=== PATIENT | male | born 1975 | race Caucasian/White ===

== ENCOUNTER → 2016-12-21 | Outpatient (CLI) | payer OTHER ==
[2016-12-21 16:14] LABS: ANION GAP 8 MEQ/L (8-16); BLOOD UREA NITROGEN 14 MG/DL (7-18); CALCIUM LEVEL 8.3 MG/DL (8.5-10.1); CARBON DIOXIDE LEVEL 26 MEQ/L (21-32); CHLORIDE LEVEL 108 MEQ/L (98-107); CREATININE FOR GFR 0.94 MG/DL (0.70-1.30); GLOMERULAR FILTRATION RATE > 60.0 (>60); GLUCOSE, FASTING 118 MG/DL (70-105); POTASSIUM SERUM 4.2 MEQ/L (3.5-5.1); SODIUM LEVEL 142 MEQ/L (136-145)
[2016-12-21 16:25] LABS: MEAN CORPUSCULAR HEMOGLOBIN 28.2 pg (27.0-33.0); MEAN CORPUSCULAR HGB CONC 34.3 g/dl (32.0-36.5); MEAN CORPUSCULAR VOLUME 82.3 fl (80.0-96.0); PLATELET COUNT, AUTOMATED 171 k/mm3 (150-450); RED CELL DISTRIBUTION WIDTH 13.7 % (11.5-14.5)
[2016-12-21 18:06] LABS: EOSINOPHILS 1 % (0-5)
== END ==
LOC: M WUC 13:53
PROVIDERS: ATTEND Nurse Practitioner Family
DX: J11.1 Influenza due to unidentified influenza virus with other respiratory manifestations (principal)

== ENCOUNTER 2016-12-25 13:44 | Emergency (ER) | payer OTHER ==
[2016-12-25] MEDS ORDERED: KETOROLAC 30 MG/ML VIAL (J1885) As Ordered ONE (15:27)
[2016-12-25] MEDS ORDERED: ONDANSETRON 4MG/2ML VIAL (J2405) As Ordered ONE (15:27)
[2016-12-25 15:58] LABS: ALBUMIN 3.9 GM/DL (3.2-5.2); ALBUMIN/GLOBULIN RATIO 1.15 (1.00-1.93); ALKALINE PHOSPHATASE 234 U/L (45-117); ALT/SGPT 150 U/L (12-78); ANION GAP 10 MEQ/L (8-16); AST/SGOT 97 U/L (15-37); BILIRUBIN,DIRECT 0.5 MG/DL (0.0-0.2); BILIRUBIN,TOTAL 1.9 MG/DL (0.2-1.0); BLOOD UREA NITROGEN 10 MG/DL (7-18); CALCIUM LEVEL 8.2 MG/DL (8.5-10.1); CARBON DIOXIDE LEVEL 29 MEQ/L (21-32); CHLORIDE LEVEL 100 MEQ/L (98-107); CREATININE FOR GFR 0.91 MG/DL (0.70-1.30); GLOMERULAR FILTRATION RATE > 60.0 (>60); GLUCOSE, FASTING 98 MG/DL (70-105); POTASSIUM SERUM 3.6 MEQ/L (3.5-5.1); SODIUM LEVEL 139 MEQ/L (136-145); TOTAL PROTEIN 7.3 GM/DL (6.4-8.2)
[2016-12-25 16:03] LABS: MEAN CORPUSCULAR VOLUME 80.7 fl (80.0-96.0); PLATELET COUNT, AUTOMATED 187 k/mm3 (150-450); WHITE BLOOD COUNT 8.1 K/mm3 (4.0-10.0)
--- NOTE | 2016-12-25 16:13 | REP ---
CT ABDOMEN AND PELVIS WITHOUT IV CONTRAST: CT abdomen and pelvis is performed without oral or IV contrast. Sagittal and coronal reconstruction images are performed. Visualized lung bases demonstrate no infiltrate. Liver, spleen, adrenals, pancreas and kidney are unremarkable. There is no renal or ureteral calculus and no evidence of hydroureteronephrosis. There is no abdominal aortic aneurysm with mild scattered atherosclerotic calcification. There is no adenopathy. There is no free air or free fluid. There is no bowel wall thickening. There is mild sigmoid diverticulosis. The appendix is normal. There is no pelvic mass. Urinary bladder is not distended and is not well evaluated. IMPRESSION: No CT evidence of renal or ureteral calculus and no evidence of hydroureteronephrosis. No evidence of appendicitis. Signed by Gómez Rodriguez MD 12/25/2016 05:00 P
[2016-12-25 16:37] LABS: BANDS 2 % (< 11); EOSINOPHILS 1 % (0-5); OVALOCYTES 1+; PLASMA CELL 1 % (0-0); POIKILOCYTOSIS 1+; POLYCHROMASIA 1+; SMUDGE CELLS 1+
--- NOTE | 2016-12-25 17:32 | EDDOCDS ---
Nurse's Notes [facility] Name: Lester Alcantara Age: 41 yrs Sex: Male : 1975 Arrival Date: 12/25/2016 Time: 13:44 Bed I2 / M2 Private MD: Sly Cuellar Diagnosis: Nausea and vomiting;Diarrhea, unspecified;Abdominal and pelvic pain-Left sided Presentation: 12/25 13:48 Presenting complaint: Patient states: left sided abdominal pain for a few days, kpj appetite poor, very little BM today. Adult Sepsis Screening: The patient does not have new or worsening altered mentation. Patient's respiratory rate is less than 22. Systolic blood pressure is greater than 100. Patient has a qSOFA score of 0- Negative Sepsis Screen. Suicide/Homicide risk assessment- the patient denies having any suicidal and/or homicidal ideations and does not present with any other emotional, behavioral or mental health complaints. Status: Patient is not a food service helper or dependent. Transition of care: patient was not received from another setting of care. 13:48 Acuity: LAKESH[place] Level 3 [facility] 13:48 Method Of Arrival: Walkin/Carried/[facility] Triage Assessment: 13:53 General: Appears well nourished, well groomed, Behavior is appropriate for age, kpj pleasant. Pain: Location: left lower quadrant Pain currently is 5 out of 10 on a pain scale. Pt Declines HIV testing. Neurological: Level of Consciousness is awake, alert, Oriented to person, place, time. Respiratory: Airway is patent Respiratory effort is even, unlabored, Respiratory pattern is regular, symmetrical. GI: Reports lower abdominal pain, nausea, Pain is 5 out of 10 on a pain scale. Derm: Skin is pink, warm & dry. Historical: - Allergies: No known drug Allergies; SHELLFISH (Swelling); - Home Meds: 1. Advair Diskus 100-50 mcg/dose Inhl dsdv 1 puff daily (Last dose: 12/25/2016 06:00) 2. Nexium 40 mg Oral cpDR 1 cap every 3 days (Last dose: 12/25/2016 06:00) 3. ProAir HFA 90 mcg/actuation inhalation HFAA 2 puffs every 4 hours as needed (Last dose: Unknown) 4. acetaminophen 650 mg Oral TbER 2 tabs every 8 hours as needed (Last dose: 12/25/2016 06:00) - PMHx: Asthma; Chronic Back pain; GERD; - PSHx: Tendon repain left middle finger; Left thumb; - Social history: Smoking status: Patient states former smoker of tobacco. No barriers to communication noted, The patient speaks fluent Tajik. - Family history: Not pertinent. - : The pt / caregiver states he / she is not on anticoagulants. Home medication list is obtained from the patient. - Exposure Risk Screening:: None identified. Screenin:36 Screening information is obtained from the patient. Fall risk: No risks identified. k Assistance ADL's: requires no assistance with activities of daily living. Abuse/DV Screen: The patient / caregiver reports he/she is: not in a situation that causes fear, pain or injury. Nutritional screening: No deficits noted. Advance Directives: Currently, there is no health care proxy. There is no active DNR order. There is no living will. 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 Advance directive information has not previously been placed in an [facility] medical record. Further advance directive information is declined. home support is adequate. Assessment: 15:36 General: Appears in no apparent distress, casually sitting on chair. Indicates k discomfort to left lower ribs, posterior aspect. reports increased pain with inspiration. chest is CTA. ++CVA tenderness. Respiratory: Airway is patent Respiratory effort is even, unlabored, Respiratory pattern is regular, Breath sounds are clear bilaterally. GI: Abdomen is flat, non- distended Bowel sounds present X 4 quads. Abd is tender to palpation in posterior aspect of right lateral abdomen. 17:30 General: reports pain as unchanged. continues to present without resp distress. [facility] Vital Signs: 13:46 BP 157 / 94; Pulse 97; Resp 20; Temp 100.0(O); Pulse Ox 98% on R/A; Weight 86.18 kg ar3 (R); Height 5 ft. 5 in. (165.10 cm) (R); Pain 6/10; 16:29 BP 164 / 91; Pulse 89; Resp 18; Temp 100.0; Pulse Ox 98% ; Pain 4/10; jam1 17:28 BP 127 / 72; Pulse 82; Resp 16; Temp 97.3; k 13:46 Body Mass Index 31.62 (86.18 kg, 165.10 cm) ar3 Vitals: 13:46 Log In Time: December 25, 2016 at 13:42. ar3 ED Course: 13:45 Patient visited by Paz Mac PCA. ar3 13:45 Sly Cuellar PA is Private Physician. ar3 13:45 Patient moved to Waiting ar3 13:47 Patient visited by Paz Mac PCA. ar3 13:47 Patient moved to Pre RCE ar3 13:50 Triage Initiated kpj 14:46 Patient moved to Triage 3 ar3 15:01 [facility] cc10 15:01 Fabien Lind MD is Attending Physician. cc10 15:01 Patient visited by Cole Ibrahim PA-C. cc10 15:01 Patient visited by Cole Ibrahim PA-C. cc10 15:08 Patient moved to I2 / M2 ar3 15:09 Urinalysis Sent. ar3 15:09 Urine Culture Sent. ar3 15:18 [place] [place] Agreement was scanned into [employer] and attached to record. lg 15:28 Basic Metabolic Profile Sent. ld5 15:28 CBC with Diff Sent. ld5 15:28 Lipase Sent. ld5 15:28 Liver Profile Sent. ld5 15:28 Inserted saline lock: 20 gauge in left antecubital area and blood collected. The ld5 patient tolerated the procedure well. Labs drawn. (by ED staff). Sent per order to lab. 15:36 The patient / caregiver is instructed regarding the plan of care and ED course. jmk 15:39 Patient visited by Kvng Grissom RN. jmk 16:24 CT ABD & PELVIS: No Contrast Returned. EDMS 16:53 Patient visited by Darcie Hobbs RN. dls 17:08 Sly Cuellar PA is Referral Physician. cc10 17:28 Discontinued lock intact, bleeding controlled, pressure dressing applied, No jmk redness/swelling at site. 17:30 No procedures done that require assistance. ulisesk Administered Medications: 15:35 Drug: NS 0.9% 1000 ml Route: IV; Rate: bolus; Site: left antecubital; kimberly 15:35 Drug: Ondansetron 4 mg Route: IVP; Site: left antecubital; kimberly 15:35 Drug: ketorolac 30 mg [ketorolac 30 mg/mL (1 mL) injection solution (1 mL)] Route: IVP; [facility] Site: left antecubital; Order Results: Lab Order: Basic Metabolic Profile; SPEC12/25/16 15:26 Test: GLUCOSE, FASTING; Value: 98; Range: 70-105; Units: MG/DL; Status: F Test: BLOOD UREA NITROGEN; Value: 10; Range: 7-18; Units: MG/DL; Status: F Test: CREATININE FOR GFR; Value: 0.91; Range: 0.70-1.30; Units: MG/DL; Status: F Test: GLOMERULAR FILTRATION RATE; Value: > 60.0; Range: >60; Status: F Test: SODIUM LEVEL; Value: 139; Range: 136-145; Units: MEQ/L; Status: F Test: POTASSIUM SERUM; Value: 3.6; Range: 3.5-5.1; Units: MEQ/L; Status: F Test: CHLORIDE LEVEL; Value: 100; Range: 98-107; Units: MEQ/L; Status: F Test: CARBON DIOXIDE LEVEL; Value: 29; Range: 21-32; Units: MEQ/L; Status: F Test: ANION GAP; Value: 10; Range: 8-16; Units: MEQ/L; Status: F Test: CALCIUM LEVEL; Value: 8.2; Range: 8.5-10.1; Abnormal: Below low normal; Units: MG/DL; Status: F Test Note: ; Units are mL/min/1.73 m2 Chronic Kidney Disease Staging per NKF: Stage I & II GFR >=60 Normal to Mildly Decreased Stage III GFR 30-59 Moderately Decreased Stage IV GFR 15-29 Severely Decreased Stage V GFR <15 Very Little GFR Left ESRD GFR <15 on GARMENT EXAMINER Lab Order: CBC with Diff; SPEC'12/25/16 15:26 Test: WHITE BLOOD COUNT; Value: 8.1; Range: 4.0-10.0; Units: K/mm3; Status: F Test: RED BLOOD COUNT; Value: 4.55; Range: 4.30-6.10; Units: M/mm3; Status: F Test: HEMOGLOBIN; Value: 13.2; Range: 14.0-18.0; Abnormal: Below low normal; Units: g/dl; Status: F Test: HEMATOCRIT; Value: 36.7; Range: 42.0-52.0; Abnormal: Below low normal; Units: %; Status: F Test: MEAN CORPUSCULAR VOLUME; Value: 80.7; Range: 80.0-96.0; Units: fl; Status: F Test: MEAN CORPUSCULAR HEMOGLOBIN; Value: 29.0; Range: 27.0-33.0; Units: pg; Status: F Test: MEAN CORPUSCULAR HGB CONC; Value: 36.0; Range: 32.0-36.5; Units: g/dl; Status: F Test: RED CELL DISTRIBUTION WIDTH; Value: 14.0; Range: 11.5-14.5; Units: %; Status: F Test: PLATELET COUNT, AUTOMATED; Value: 187; Range: 150-450; Units: k/mm3; Status: F Test: NEUTROPHILS; Value: 26; Range: 35-75; Abnormal: Below low normal; Units: %; Status: F Test: BANDS; Value: 2; Range: < 11; Units: %; Status: F Test: LYMPHOCYTES; Value: 28; Range: 16-52; Units: %; Status: F Test: MONOCYTES; Value: 2; Range: 0-8; Units: %; Status: F Test: EOSINOPHILS; Value: 1; Range: 0-5; Units: %; Status: F Test: ATYPICAL LYMPH; Value: 40; Range: 0-5; Abnormal: Above high normal; Units: %; Status: F Test: PLASMA CELL; Value: 1; Range: 0-0; Abnormal: Above high normal; Units: %; Status: F Test: POLYCHROMASIA; Value: 1+; Status: F Test: POIKILOCYTOSIS; Value: 1+; Status: F Test: OVALOCYTES; Value: 1+; Status: F Test: SMUDGE CELLS; Value: 1+; Status: F Lab Order: Lipase; SPEC'M 12/25/16 15:26 Test: LIPASE; Value: 109; Range: 73-393; Units: U/L; Status: F Lab Order: Liver Profile; SPEC'M 12/25/16 15:26 Test: AST/SGOT; Value: 97; Range: 15-37; Abnormal: Above high normal; Units: U/L; Status: F Test: ALT/SGPT; Value: 150; Range: 12-78; Abnormal: Above high normal; Units: U/L; Status: F Test: ALKALINE PHOSPHATASE; Value: 234; Range: 45-117; Abnormal: Above high normal; Units: U/L; Status: F Test: BILIRUBIN,TOTAL; Value: 1.9; Range: 0.2-1.0; Abnormal: Above high normal; Units: MG/DL; Status: F Test: BILIRUBIN,DIRECT; Value: 0.5; Range: 0.0-0.2; Abnormal: Above high normal; Units: MG/DL; Status: F Test: TOTAL PROTEIN; Value: 7.3; Range: 6.4-8.2; Units: GM/DL; Status: F Test: ALBUMIN; Value: 3.9; Range: 3.2-5.2; Units: GM/DL; Status: F Test: ALBUMIN/GLOBULIN RATIO; Value: 1.15; Range: 1.00-1.93; Status: F Lab Order: Urinalysis; SPEC'M 12/25/16 15:08 Test: APPEARANCE, URINE; Value: HAZY; Range: CLEAR; Status: F Test: COLOR, URINE; Value: NORMAN; Range: YELLOW; Status: F Test: PH,URINE; Value: 6.0; Range: 5.0-9.0; Units: UNITS; Status: F Test: SPECIFIC GRAVITY URINE AUTO; Value: 1.029; Range: 1.002-1.035; Status: F Test: PROTEIN, URINE AUTO; Value: 1+; Range: NEGATIVE; Abnormal: Above high normal; Units: mg/dL; Status: F Test: GLUCOSE, URINE (UA) AUTO; Value: NEGATIVE; Range: NEGATIVE; Units: mg/dL; Status: F Test: KETONE, URINE AUTO; Value: TRACE; Range: NEGATIVE; Abnormal: Above high normal; Units: mg/dL; Status: F Test: UROBILINOGEN, URINE AUTO; Value: 4.0; Range: 0.0-2.0; Abnormal: Above high normal; Units: mg/dL; Status: F Test: BILIRUBIN, URINE AUTO; Value: NEGATIVE; Range: NEGATIVE; Status: F Test: NITRITE, URINE AUTO; Value: NEGATIVE; Range: NEGATIVE; Status: F Test: LEUKOCYTE ESTERASE, URINE AUTO; Value: NEGATIVE; Range: NEGATIVE; Status: F Test: BLOOD, URINE BLOOD; Value: NEGATIVE; Range: NEGATIVE; Status: F Test: WBC, URINE AUTO; Value: 12; Range: 0-3; Abnormal: Above high normal; Units: /HPF; Status: F Test: RBC, URINE AUTO; Value: 4; Range: 0-3; Abnormal: Above high normal; Units: /HPF; Status: F Test: BACTERIA, URINE AUTO; Value: 1+; Range: NEGATIVE; Abnormal: Above high normal; Status: F Test: SQUAMOUS EPITHELIAL CELL UR AU; Value: 0; Range: 0-6; Units: /HPF; Status: F Test: MUCUS, URINE; Value: LARGE; Range: NEGATIVE; Status: F Test: HYALINE CAST, URINE AUTO; Value: 0; Range: 0-1; Units: /LPF; Status: F Lab Order: PLATELET ESTIMATE; SPEC'M 12/25/16 15:26 Test: PLATELET ESTIMATE; Value: NORMAL; Range: NORMAL; Status: F Radiology Order: CT ABD & PELVIS: No Contrast Test: CT ABD & PELVIS: No Contrast REASON FOR EXAMINATION: Renal colic; CT ABDOMEN AND PELVIS WITHOUT IV CONTRAST:; ; CT abdomen and pelvis is performed without oral or IV contrast. Sagittal and; coronal reconstruction images are performed.; ; Visualized lung bases demonstrate no infiltrate. Liver, spleen, adrenals,; pancreas and kidney are unremarkable. There is no renal or ureteral calculus and; no evidence of hydroureteronephrosis. There is no abdominal aortic aneurysm with; mild scattered atherosclerotic calcification. There is no adenopathy. There is no; free air or free fluid. There is no bowel wall thickening. There is mild sigmoid; diverticulosis. The appendix is normal. There is no pelvic mass. Urinary bladder; is not distended and is not well evaluated.; ; IMPRESSION:; ; No CT evidence of renal or ureteral calculus and no evidence of; hydroureteronephrosis. No evidence of appendicitis.; ; ; ; Unreviewed; Outcome: 17:08 Discharge ordered by Provider. cc10 17:28 Discharge Assessment: Patient awake, alert and oriented x 3. No cognitive and/or jmk functional deficits noted. Patient verbalized understanding of disposition instructions. patient administered narcotics - no. The following High Risk Discharge criteria are identified: None. Discharged to home ambulatory. Condition: good. Discharge instructions given to patient, Instructed on discharge instructions, follow up and referral plans. medication usage, Demonstrated understanding of instructions, medications, Pt was receptive of discharge instructions/ teaching. Prescriptions given X 2. CT Study completed. Property :Personal belongings accompany Pt. 17:31 Patient left the ED. kimberly Signatures: Dispatcher [employer] EDMS Lianna Chavira RN RN Kvng MoiseRN RN Darcie Gannon RN RN Shayy Horne, TIRE REPAIR MECHANIC TIRE REPAIR MECHANIC jam1 Nima Cao, Reg Reg lg Paz Mac, TIRE REPAIR MECHANIC TIRE REPAIR MECHANIC ar3 Breonna Salgado RN RN ld5 Cole Ibrahim, PA-C PA-C cc10 MTDD
--- NOTE | 2016-12-25 17:32 | EDDOCDS ---
Physician Documentation [facility] Name: Lester Alcantara Age: 41 yrs Sex: Male : 1975 Arrival Date: 12/25/2016 Time: 13:44 Bed I2 / M2 Private MD: Sly Cuellar Disposition: 12/25/16 17:08 Discharged to Home/Self Care. Impression: Nausea and vomiting, Diarrhea, unspecified, Abdominal and pelvic pain - Left sided. - Condition is Stable. - Discharge Instructions: Food Choices to Help Relieve Diarrhea, Adult, Nausea and Vomiting. - Prescriptions for Ultram 50 mg Oral Tablet - take 1 tablet by ORAL route every 6 hours As needed MDD: 4 tabs; 16 tablet. ZOFRAN ODT 4 mg - dissolve 1 tablet by ORAL route 4 times per day As needed do not chew, do not swallow whole; 10 tablet. - Medication Reconciliation form. - Follow up: Emergency Department; When: As needed; Reason: Worsening of conditions. Follow up: Sly Cuellar PA; When: Call to arrange an appointment; Reason: Wound/Symptom Recheck, Recheck today's complaints, Worsening of conditions, Continuance of care. - Problem is an ongoing problem. - Symptoms have improved. Historical: - Allergies: No known drug Allergies; SHELLFISH (Swelling); - Home Meds: 1. Advair Diskus 100-50 mcg/dose Inhl dsdv 1 puff daily (Last dose: 12/25/2016 06:00) 2. Nexium 40 mg Oral cpDR 1 cap every 3 days (Last dose: 12/25/2016 06:00) 3. ProAir HFA 90 mcg/actuation inhalation HFAA 2 puffs every 4 hours as needed (Last dose: Unknown) 4. acetaminophen 650 mg Oral TbER 2 tabs every 8 hours as needed (Last dose: 12/25/2016 06:00) - PMHx: Asthma; Chronic Back pain; GERD; - PSHx: Tendon repain left middle finger; Left thumb; - Social history: Smoking status: Patient states former smoker of tobacco. No barriers to communication noted, The patient speaks fluent Georgian. - Family history: Not pertinent. - : The pt / caregiver states he / she is not on anticoagulants. Home medication list is obtained from the patient. - Exposure Risk Screening:: None identified. Vital Signs: 12/25 13:46 BP 157 / 94; Pulse 97; Resp 20; Temp 100.0(O); Pulse Ox 98% on R/A; Weight 86.18 kg / ar3 189.99 lbs (R); Height 5 ft. 5 in. (165.10 cm) (R); Pain 6/10; 16:29 BP 164 / 91; Pulse 89; Resp 18; Temp 100.0; Pulse Ox 98% ; Pain 4/10; jam1 17:28 BP 127 / 72; Pulse 82; Resp 16; Temp 97.3; jmk 13:46 Body Mass Index 31.62 (86.18 kg, 165.10 cm) ar3 MDM: 15:04 Financial registration complete. lg 15:06 NS 0.9% 1000 ml IV at bolus once ordered. cc10 15:06 Ondansetron 4 mg IVP once ordered. cc10 15:06 ketorolac 30 mg IVP once ordered. cc10 15:06 IV Saline Lock ordered. cc10 15:06 Undress patient appropriately for examination ordered. cc10 15:07 Basic Metabolic Profile Ordered. EDMS 15:07 CBC with Diff Ordered. EDMS 15:07 Lipase Ordered. EDMS 15:07 Liver Profile Ordered. EDMS 15:07 Urinalysis Ordered. EDMS 15:07 Urine Culture Ordered. EDMS 15:07 CT ABD & PELVIS: No Contrast Ordered. EDMS 15:08 NOTHING BY MOUTH+DIET ordered. EDMS 15:18 [facility] Payment Agreement was scanned into [employer] and attached to record. lg 16:04 DIFFERENTIAL NO CHARGE Ordered. EDMS 16:04 PLATELET ESTIMATE Ordered. EDMS 16:16 Basic Metabolic Profile Reviewed. cc10 16:16 CBC with Diff Reviewed. cc10 16:16 Liver Profile Reviewed. cc10 16:16 Urinalysis Reviewed. cc10 16:16 Lipase Reviewed. cc10 16:19 Vital Signs ordered. cc10 17:11 Hepatitis Profile Ordered. EDMS Administered Medications: 15:35 Drug: NS 0.9% 1000 ml Route: IV; Rate: bolus; Site: left antecubital; jmk 15:35 Drug: Ondansetron 4 mg Route: IVP; Site: left antecubital; jmk 15:35 Drug: ketorolac 30 mg [ketorolac 30 mg/mL (1 mL) injection solution (1 mL)] Route: IVP; ulisesk Site: left antecubital; Signatures: Dispatcher [employer] Lianna Bo RN RN Kvng MoiseRN RN Nima Cartagena, Hammad Reg Cole Infante, BARAK CANCINO cc10 The chart was reviewed and I authenticate all verbal orders and agree with the evaluation and treatment provided.Attachments: 15:18 [facility] Payment Agreement lg MTDD
--- NOTE | 2016-12-27 18:32 | EDDOCDS ---
Nurse's Notes [facility] Name: Lester Alcantara Age: 41 yrs Sex: Male : 1975 Arrival Date: 12/25/2016 Time: 13:44 Bed I2 / M2 Private MD: Sly Cuellar Diagnosis: Nausea and vomiting;Diarrhea, unspecified;Abdominal and pelvic pain-Left sided Presentation: 12/25 13:48 Presenting complaint: Patient states: left sided abdominal pain for a few days, kpj appetite poor, very little BM today. Adult Sepsis Screening: The patient does not have new or worsening altered mentation. Patient's respiratory rate is less than 22. Systolic blood pressure is greater than 100. Patient has a qSOFA score of 0- Negative Sepsis Screen. Suicide/Homicide risk assessment- the patient denies having any suicidal and/or homicidal ideations and does not present with any other emotional, behavioral or mental health complaints. 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 Transition of care: patient was not received from another setting of care. 13:48 Acuity: LAKESH[place] Level 3 [facility] 13:48 Method Of Arrival: Walkin/Carried/Asstd [facility] Triage Assessment: 13:53 General: Appears well nourished, well groomed, Behavior is appropriate for age, kpj pleasant. Pain: Location: left lower quadrant Pain currently is 5 out of 10 on a pain scale. Pt Declines HIV testing. Neurological: Level of Consciousness is awake, alert, Oriented to person, place, time. Respiratory: Airway is patent Respiratory effort is even, unlabored, Respiratory pattern is regular, symmetrical. GI: Reports lower abdominal pain, nausea, Pain is 5 out of 10 on a pain scale. Derm: Skin is pink, warm & dry. Historical: - Allergies: No known drug Allergies; SHELLFISH (Swelling); - Home Meds: 1. Advair Diskus 100-50 mcg/dose Inhl dsdv 1 puff daily (Last dose: 12/25/2016 06:00) 2. Nexium 40 mg Oral cpDR 1 cap every 3 days (Last dose: 12/25/2016 06:00) 3. ProAir HFA 90 mcg/actuation inhalation HFAA 2 puffs every 4 hours as needed (Last dose: Unknown) 4. acetaminophen 650 mg Oral TbER 2 tabs every 8 hours as needed (Last dose: 12/25/2016 06:00) - PMHx: Asthma; Chronic Back pain; GERD; - PSHx: Tendon repain left middle finger; Left thumb; - Social history: Smoking status: Patient states former smoker of tobacco. No barriers to communication noted, The patient speaks fluent Luxembourgish. - Family history: Not pertinent. - : The pt / caregiver states he / she is not on anticoagulants. Home medication list is obtained from the patient. - Exposure Risk Screening:: None identified. Screenin:36 Screening information is obtained from the patient. Fall risk: No risks identified. k Assistance ADL's: requires no assistance with activities of daily living. Abuse/DV Screen: The patient / caregiver reports he/she is: not in a situation that causes fear, pain or injury. Nutritional screening: No deficits noted. Advance Directives: Currently, there is no health care proxy. There is no active DNR order. There is no living will. There is no Power of Milling/Polishing Operator. Advance directive information has not previously been placed in an [facility] medical record. Further advance directive information is declined. home support is adequate. Assessment: 15:36 General: Appears in no apparent distress, casually sitting on chair. Indicates k discomfort to left lower ribs, posterior aspect. reports increased pain with inspiration. chest is CTA. ++CVA tenderness. Respiratory: Airway is patent Respiratory effort is even, unlabored, Respiratory pattern is regular, Breath sounds are clear bilaterally. GI: Abdomen is flat, non- distended Bowel sounds present X 4 quads. Abd is tender to palpation in posterior aspect of right lateral abdomen. 17:30 General: reports pain as unchanged. continues to present without resp distress. [facility] Vital Signs: 13:46 BP 157 / 94; Pulse 97; Resp 20; Temp 100.0(O); Pulse Ox 98% on R/A; Weight 86.18 kg ar3 (R); Height 5 ft. 5 in. (165.10 cm) (R); Pain 6/10; 16:29 BP 164 / 91; Pulse 89; Resp 18; Temp 100.0; Pulse Ox 98% ; Pain 4/10; jam1 17:28 BP 127 / 72; Pulse 82; Resp 16; Temp 97.3; k 13:46 Body Mass Index 31.62 (86.18 kg, 165.10 cm) ar3 Vitals: 13:46 Log In Time: December 25, 2016 at 13:42. ar3 ED Course: 13:45 Patient visited by Paz Mac PCA. ar3 13:45 Sly Cuellar PA is Private Physician. ar3 13:45 Patient moved to Waiting ar3 13:47 Patient visited by Paz Mac PCA. ar3 13:47 Patient moved to Pre RCE ar3 13:50 Triage Initiated kpj 14:46 Patient moved to Triage 3 ar3 15:01 [facility] cc10 15:01 Fabien Lind MD is Attending Physician. cc10 15:01 Patient visited by Cole Ibrahim PA-C. cc10 15:01 Patient visited by Cole Ibrahim PA-C. cc10 15:08 Patient moved to I2 / M2 ar3 15:09 Urinalysis Sent. ar3 15:09 Urine Culture Sent. ar3 15:18 [facility] Payment Agreement was scanned into [employer] and attached to record. lg 15:28 Basic Metabolic Profile Sent. ld5 15:28 CBC with Diff Sent. ld5 15:28 Lipase Sent. ld5 15:28 Liver Profile Sent. ld5 15:28 Inserted saline lock: 20 gauge in left antecubital area and blood collected. The ld5 patient tolerated the procedure well. Labs drawn. (by ED staff). Sent per order to lab. 15:36 The patient / caregiver is instructed regarding the plan of care and ED course. jmk 15:39 Patient visited by Kvng Grissom RN. jmk 16:24 CT ABD & PELVIS: No Contrast Returned. EDMS 16:53 Patient visited by Darcie Hobbs RN. dls 17:08 Sly Cuellar PA is Referral Physician. cc10 17:28 Discontinued lock intact, bleeding controlled, pressure dressing applied, No jmk redness/swelling at site. 17:30 No procedures done that require assistance. ulisesk Administered Medications: 15:35 Drug: NS 0.9% 1000 ml Route: IV; Rate: bolus; Site: left antecubital; kimberly 15:35 Drug: Ondansetron 4 mg Route: IVP; Site: left antecubital; kimberly 15:35 Drug: ketorolac 30 mg [ketorolac 30 mg/mL (1 mL) injection solution (1 mL)] Route: IVP; [facility] Site: left antecubital; Order Results: Lab Order: Basic Metabolic Profile; SPEC12/25/16 15:26 Test: GLUCOSE, FASTING; Value: 98; Range: 70-105; Units: MG/DL; Status: F Test: BLOOD UREA NITROGEN; Value: 10; Range: 7-18; Units: MG/DL; Status: F Test: CREATININE FOR GFR; Value: 0.91; Range: 0.70-1.30; Units: MG/DL; Status: F Test: GLOMERULAR FILTRATION RATE; Value: > 60.0; Range: >60; Status: F Test: SODIUM LEVEL; Value: 139; Range: 136-145; Units: MEQ/L; Status: F Test: POTASSIUM SERUM; Value: 3.6; Range: 3.5-5.1; Units: MEQ/L; Status: F Test: CHLORIDE LEVEL; Value: 100; Range: 98-107; Units: MEQ/L; Status: F Test: CARBON DIOXIDE LEVEL; Value: 29; Range: 21-32; Units: MEQ/L; Status: F Test: ANION GAP; Value: 10; Range: 8-16; Units: MEQ/L; Status: F Test: CALCIUM LEVEL; Value: 8.2; Range: 8.5-10.1; Abnormal: Below low normal; Units: MG/DL; Status: F Test Note: ; Units are mL/min/1.73 m2 Chronic Kidney Disease Staging per NKF: Stage I & II GFR >=60 Normal to Mildly Decreased Stage III GFR 30-59 Moderately Decreased Stage IV GFR 15-29 Severely Decreased Stage V GFR <15 Very Little GFR Left ESRD GFR <15 on [facility] Lab Order: CBC with Diff; SPEC'12/25/16 15:26 Test: WHITE BLOOD COUNT; Value: 8.1; Range: 4.0-10.0; Units: K/mm3; Status: F Test: RED BLOOD COUNT; Value: 4.55; Range: 4.30-6.10; Units: M/mm3; Status: F Test: HEMOGLOBIN; Value: 13.2; Range: 14.0-18.0; Abnormal: Below low normal; Units: g/dl; Status: F Test: HEMATOCRIT; Value: 36.7; Range: 42.0-52.0; Abnormal: Below low normal; Units: %; Status: F Test: MEAN CORPUSCULAR VOLUME; Value: 80.7; Range: 80.0-96.0; Units: fl; Status: F Test: MEAN CORPUSCULAR HEMOGLOBIN; Value: 29.0; Range: 27.0-33.0; Units: pg; Status: F Test: MEAN CORPUSCULAR HGB CONC; Value: 36.0; Range: 32.0-36.5; Units: g/dl; Status: F Test: RED CELL DISTRIBUTION WIDTH; Value: 14.0; Range: 11.5-14.5; Units: %; Status: F Test: PLATELET COUNT, AUTOMATED; Value: 187; Range: 150-450; Units: k/mm3; Status: F Test: NEUTROPHILS; Value: 26; Range: 35-75; Abnormal: Below low normal; Units: %; Status: F Test: BANDS; Value: 2; Range: < 11; Units: %; Status: F Test: LYMPHOCYTES; Value: 28; Range: 16-52; Units: %; Status: F Test: MONOCYTES; Value: 2; Range: 0-8; Units: %; Status: F Test: EOSINOPHILS; Value: 1; Range: 0-5; Units: %; Status: F Test: ATYPICAL LYMPH; Value: 40; Range: 0-5; Abnormal: Above high normal; Units: %; Status: F Test: PLASMA CELL; Value: 1; Range: 0-0; Abnormal: Above high normal; Units: %; Status: F Test: POLYCHROMASIA; Value: 1+; Status: F Test: POIKILOCYTOSIS; Value: 1+; Status: F Test: OVALOCYTES; Value: 1+; Status: F Test: SMUDGE CELLS; Value: 1+; Status: F Lab Order: Lipase; SPEC'M 12/25/16 15:26 Test: LIPASE; Value: 109; Range: 73-393; Units: U/L; Status: F Lab Order: Liver Profile; SPEC'M 12/25/16 15:26 Test: AST/SGOT; Value: 97; Range: 15-37; Abnormal: Above high normal; Units: U/L; Status: F Test: ALT/SGPT; Value: 150; Range: 12-78; Abnormal: Above high normal; Units: U/L; Status: F Test: ALKALINE PHOSPHATASE; Value: 234; Range: 45-117; Abnormal: Above high normal; Units: U/L; Status: F Test: BILIRUBIN,TOTAL; Value: 1.9; Range: 0.2-1.0; Abnormal: Above high normal; Units: MG/DL; Status: F Test: BILIRUBIN,DIRECT; Value: 0.5; Range: 0.0-0.2; Abnormal: Above high normal; Units: MG/DL; Status: F Test: TOTAL PROTEIN; Value: 7.3; Range: 6.4-8.2; Units: GM/DL; Status: F Test: ALBUMIN; Value: 3.9; Range: 3.2-5.2; Units: GM/DL; Status: F Test: ALBUMIN/GLOBULIN RATIO; Value: 1.15; Range: 1.00-1.93; Status: F Lab Order: Urinalysis; SPEC'M 12/25/16 15:08 Test: APPEARANCE, URINE; Value: HAZY; Range: CLEAR; Status: F Test: COLOR, URINE; Value: NORMAN; Range: YELLOW; Status: F Test: PH,URINE; Value: 6.0; Range: 5.0-9.0; Units: UNITS; Status: F Test: SPECIFIC GRAVITY URINE AUTO; Value: 1.029; Range: 1.002-1.035; Status: F Test: PROTEIN, URINE AUTO; Value: 1+; Range: NEGATIVE; Abnormal: Above high normal; Units: mg/dL; Status: F Test: GLUCOSE, URINE (UA) AUTO; Value: NEGATIVE; Range: NEGATIVE; Units: mg/dL; Status: F Test: KETONE, URINE AUTO; Value: TRACE; Range: NEGATIVE; Abnormal: Above high normal; Units: mg/dL; Status: F Test: UROBILINOGEN, URINE AUTO; Value: 4.0; Range: 0.0-2.0; Abnormal: Above high normal; Units: mg/dL; Status: F Test: BILIRUBIN, URINE AUTO; Value: NEGATIVE; Range: NEGATIVE; Status: F Test: NITRITE, URINE AUTO; Value: NEGATIVE; Range: NEGATIVE; Status: F Test: LEUKOCYTE ESTERASE, URINE AUTO; Value: NEGATIVE; Range: NEGATIVE; Status: F Test: BLOOD, URINE BLOOD; Value: NEGATIVE; Range: NEGATIVE; Status: F Test: WBC, URINE AUTO; Value: 12; Range: 0-3; Abnormal: Above high normal; Units: /HPF; Status: F Test: RBC, URINE AUTO; Value: 4; Range: 0-3; Abnormal: Above high normal; Units: /HPF; Status: F Test: BACTERIA, URINE AUTO; Value: 1+; Range: NEGATIVE; Abnormal: Above high normal; Status: F Test: SQUAMOUS EPITHELIAL CELL UR AU; Value: 0; Range: 0-6; Units: /HPF; Status: F Test: MUCUS, URINE; Value: LARGE; Range: NEGATIVE; Status: F Test: HYALINE CAST, URINE AUTO; Value: 0; Range: 0-1; Units: /LPF; Status: F Lab Order: Urine Culture; SPEC'M 12/25/16 15:08 Test: URINE CULTURE; Value: <EXTERNAL COMMENT eCWMed> FULL REPORT IN LAB NOTES (eCW and Medent).; Status: F Test: URINE CULTURE; Value: URINE CULTURE RESULT NO GROWTH; Status: F Lab Order: PLATELET ESTIMATE; SPEC'M 12/25/16 15:26 Test: PLATELET ESTIMATE; Value: NORMAL; Range: NORMAL; Status: F Lab Order: Hepatitis Profile; SPEC'M 12/25/16 15:22 Test: HEPATITIS C VIRUS SHAKIRA INDEX; Value: 0.1; Range: <0.8; Units: INDEX; Status: F Test: HEPATITIS B SURFACE ANTIGEN; Value: NEGATIVE; Range: NEGATIVE; Status: F Test: HEPATITIS B CORE ANTIBODY IGM; Value: NEGATIVE; Range: NEGATIVE; Status: F Test: HEPATITIS A ANTIBODY IGM; Value: NEGATIVE; Range: NEGATIVE; Status: F Test Note: ; Negative Not infected with HCV, unless recent infection is suspected or other evidence exists to indicate HCV infection. Radiology Order: CT ABD & PELVIS: No Contrast Test: CT ABD & PELVIS: No Contrast REASON FOR EXAMINATION: Renal colic; CT ABDOMEN AND PELVIS WITHOUT IV CONTRAST:; ; CT abdomen and pelvis is performed without oral or IV contrast. Sagittal and; coronal reconstruction images are performed.; ; Visualized lung bases demonstrate no infiltrate. Liver, spleen, adrenals,; pancreas and kidney are unremarkable. There is no renal or ureteral calculus and; no evidence of hydroureteronephrosis. There is no abdominal aortic aneurysm with; mild scattered atherosclerotic calcification. There is no adenopathy. There is no; free air or free fluid. There is no bowel wall thickening. There is mild sigmoid; diverticulosis. The appendix is normal. There is no pelvic mass. Urinary bladder; is not distended and is not well evaluated.; ; IMPRESSION:; ; No CT evidence of renal or ureteral calculus and no evidence of; hydroureteronephrosis. No evidence of appendicitis.; ; ; Signed by; Gómez Rodriguez MD 12/25/2016 05:00 P; Outcome: 17:08 Discharge ordered by Provider. cc10 17:28 Discharge Assessment: Patient awake, alert and oriented x 3. No cognitive and/or jmk functional deficits noted. Patient verbalized understanding of disposition instructions. patient administered narcotics - no. The following High Risk Discharge criteria are identified: None. Discharged to home ambulatory. Condition: good. Discharge instructions given to patient, Instructed on discharge instructions, follow up and referral plans. medication usage, Demonstrated understanding of instructions, medications, Pt was receptive of discharge instructions/ teaching. Prescriptions given X 2. CT Study completed. Property :Personal belongings accompany Pt. 17:31 Patient left the ED. kimberly Signatures: Dispatcher [employer] EDMS Lianna Chavira, RN Kvng Kendall,RN RN Darcie Gannon RN RN dls Shayy Champion, TAX SERVICES PROFESSIONAL TAX SERVICES PROFESSIONAL jam1 Nima Cao, Reg Reg lg Paz Mac, TAX SERVICES PROFESSIONAL TAX SERVICES PROFESSIONAL ar3 Breonna Salgado RN RN ld5 Cole Ibrahim, PA-C PA-C cc10 Chart Complete MTDD
--- NOTE | 2016-12-27 18:32 | EDDOCDS ---
Physician Documentation [facility] Name: Lester Alcantara Age: 41 yrs Sex: Male : 1975 Arrival Date: 12/25/2016 Time: 13:44 Bed I2 / M2 Private MD: Sly Cuellar Disposition: 12/25/16 17:08 Discharged to Home/Self Care. Impression: Nausea and vomiting, Diarrhea, unspecified, Abdominal and pelvic pain - Left sided. - Condition is Stable. - Discharge Instructions: Food Choices to Help Relieve Diarrhea, Adult, Nausea and Vomiting. - Prescriptions for Ultram 50 mg Oral Tablet - take 1 tablet by ORAL route every 6 hours As needed MDD: 4 tabs; 16 tablet. ZOFRAN ODT 4 mg - dissolve 1 tablet by ORAL route 4 times per day As needed do not chew, do not swallow whole; 10 tablet. - Medication Reconciliation form. - Follow up: Emergency Department; When: As needed; Reason: Worsening of conditions. Follow up: Sly Cuellar PA; When: Call to arrange an appointment; Reason: Wound/Symptom Recheck, Recheck today's complaints, Worsening of conditions, Continuance of care. - Problem is an ongoing problem. - Symptoms have improved. Historical: - Allergies: No known drug Allergies; SHELLFISH (Swelling); - Home Meds: 1. Advair Diskus 100-50 mcg/dose Inhl dsdv 1 puff daily (Last dose: 12/25/2016 06:00) 2. Nexium 40 mg Oral cpDR 1 cap every 3 days (Last dose: 12/25/2016 06:00) 3. ProAir HFA 90 mcg/actuation inhalation HFAA 2 puffs every 4 hours as needed (Last dose: Unknown) 4. acetaminophen 650 mg Oral TbER 2 tabs every 8 hours as needed (Last dose: 12/25/2016 06:00) - PMHx: Asthma; Chronic Back pain; GERD; - PSHx: Tendon repain left middle finger; Left thumb; - Social history: Smoking status: Patient states former smoker of tobacco. No barriers to communication noted, The patient speaks fluent Mauritanian. - Family history: Not pertinent. - : The pt / caregiver states he / she is not on anticoagulants. Home medication list is obtained from the patient. - Exposure Risk Screening:: None identified. Vital Signs: 12/25 13:46 BP 157 / 94; Pulse 97; Resp 20; Temp 100.0(O); Pulse Ox 98% on R/A; Weight 86.18 kg / ar3 189.99 lbs (R); Height 5 ft. 5 in. (165.10 cm) (R); Pain 6/10; 16:29 BP 164 / 91; Pulse 89; Resp 18; Temp 100.0; Pulse Ox 98% ; Pain 4/10; jam1 17:28 BP 127 / 72; Pulse 82; Resp 16; Temp 97.3; jmk 13:46 Body Mass Index 31.62 (86.18 kg, 165.10 cm) ar3 MDM: 15:04 Financial registration complete. lg 15:06 NS 0.9% 1000 ml IV at bolus once ordered. cc10 15:06 Ondansetron 4 mg IVP once ordered. cc10 15:06 ketorolac 30 mg IVP once ordered. cc10 15:06 IV Saline Lock ordered. cc10 15:06 Undress patient appropriately for examination ordered. cc10 15:07 Basic Metabolic Profile Ordered. EDMS 15:07 CBC with Diff Ordered. EDMS 15:07 Lipase Ordered. EDMS 15:07 Liver Profile Ordered. EDMS 15:07 Urinalysis Ordered. EDMS 15:07 Urine Culture Ordered. EDMS 15:07 CT ABD & PELVIS: No Contrast Ordered. EDMS 15:08 NOTHING BY MOUTH+DIET ordered. EDMS 15:18 [facility] Payment Agreement was scanned into [employer] and attached to record. lg 16:04 DIFFERENTIAL NO CHARGE Ordered. EDMS 16:04 PLATELET ESTIMATE Ordered. EDMS 16:16 Basic Metabolic Profile Reviewed. cc10 16:16 CBC with Diff Reviewed. cc10 16:16 Liver Profile Reviewed. cc10 16:16 Urinalysis Reviewed. cc10 16:16 Lipase Reviewed. cc10 16:19 Vital Signs ordered. cc10 17:11 Hepatitis Profile Ordered. EDMS Administered Medications: 15:35 Drug: NS 0.9% 1000 ml Route: IV; Rate: bolus; Site: left antecubital; jmk 15:35 Drug: Ondansetron 4 mg Route: IVP; Site: left antecubital; jmk 15:35 Drug: ketorolac 30 mg [ketorolac 30 mg/mL (1 mL) injection solution (1 mL)] Route: IVP; ulisesk Site: left antecubital; Signatures: Dispatcher [employer] Lianna Bo RN RN Kvng MoiseRN RN Nima Cartagena, Hammad Reg lg Cole Ibrahim, BARAK CANCINO cc10 The chart was reviewed and I authenticate all verbal orders and agree with the evaluation and treatment provided.Attachments: 15:18 [facility] Payment Agreement lg Chart Complete MTDD
--- NOTE | 2016-12-27 18:32 | EDDOCDS ---
Physician Documentation [facility] Name: Lester Alcantara Age: 41 yrs Sex: Male : 1975 Arrival Date: 12/25/2016 Time: 13:44 Bed I2 / M2 Private MD: Sly Cuellar Disposition: 12/25/16 17:08 Discharged to Home/Self Care. Impression: Nausea and vomiting, Diarrhea, unspecified, Abdominal and pelvic pain - Left sided. - Condition is Stable. - Discharge Instructions: Food Choices to Help Relieve Diarrhea, Adult, Nausea and Vomiting. - Prescriptions for Ultram 50 mg Oral Tablet - take 1 tablet by ORAL route every 6 hours As needed MDD: 4 tabs; 16 tablet. ZOFRAN ODT 4 mg - dissolve 1 tablet by ORAL route 4 times per day As needed do not chew, do not swallow whole; 10 tablet. - Medication Reconciliation form. - Follow up: Emergency Department; When: As needed; Reason: Worsening of conditions. Follow up: Sly Cuellar PA; When: Call to arrange an appointment; Reason: Wound/Symptom Recheck, Recheck today's complaints, Worsening of conditions, Continuance of care. - Problem is an ongoing problem. - Symptoms have improved. Historical: - Allergies: No known drug Allergies; SHELLFISH (Swelling); - Home Meds: 1. Advair Diskus 100-50 mcg/dose Inhl dsdv 1 puff daily (Last dose: 12/25/2016 06:00) 2. Nexium 40 mg Oral cpDR 1 cap every 3 days (Last dose: 12/25/2016 06:00) 3. ProAir HFA 90 mcg/actuation inhalation HFAA 2 puffs every 4 hours as needed (Last dose: Unknown) 4. acetaminophen 650 mg Oral TbER 2 tabs every 8 hours as needed (Last dose: 12/25/2016 06:00) - PMHx: Asthma; Chronic Back pain; GERD; - PSHx: Tendon repain left middle finger; Left thumb; - Social history: Smoking status: Patient states former smoker of tobacco. No barriers to communication noted, The patient speaks fluent Chinese. - Family history: Not pertinent. - : The pt / caregiver states he / she is not on anticoagulants. Home medication list is obtained from the patient. - Exposure Risk Screening:: None identified. Vital Signs: 12/25 13:46 BP 157 / 94; Pulse 97; Resp 20; Temp 100.0(O); Pulse Ox 98% on R/A; Weight 86.18 kg / ar3 189.99 lbs (R); Height 5 ft. 5 in. (165.10 cm) (R); Pain 6/10; 16:29 BP 164 / 91; Pulse 89; Resp 18; Temp 100.0; Pulse Ox 98% ; Pain 4/10; jam1 17:28 BP 127 / 72; Pulse 82; Resp 16; Temp 97.3; jmk 13:46 Body Mass Index 31.62 (86.18 kg, 165.10 cm) ar3 MDM: 15:04 Financial registration complete. lg 15:06 NS 0.9% 1000 ml IV at bolus once ordered. cc10 15:06 Ondansetron 4 mg IVP once ordered. cc10 15:06 ketorolac 30 mg IVP once ordered. cc10 15:06 IV Saline Lock ordered. cc10 15:06 Undress patient appropriately for examination ordered. cc10 15:07 Basic Metabolic Profile Ordered. EDMS 15:07 CBC with Diff Ordered. EDMS 15:07 Lipase Ordered. EDMS 15:07 Liver Profile Ordered. EDMS 15:07 Urinalysis Ordered. EDMS 15:07 Urine Culture Ordered. EDMS 15:07 CT ABD & PELVIS: No Contrast Ordered. EDMS 15:08 NOTHING BY MOUTH+DIET ordered. EDMS 15:18 [facility] Payment Agreement was scanned into [employer] and attached to record. lg 16:04 DIFFERENTIAL NO CHARGE Ordered. EDMS 16:04 PLATELET ESTIMATE Ordered. EDMS 16:16 Basic Metabolic Profile Reviewed. cc10 16:16 CBC with Diff Reviewed. cc10 16:16 Liver Profile Reviewed. cc10 16:16 Urinalysis Reviewed. cc10 16:16 Lipase Reviewed. cc10 16:19 Vital Signs ordered. cc10 17:11 Hepatitis Profile Ordered. EDMS Administered Medications: 15:35 Drug: NS 0.9% 1000 ml Route: IV; Rate: bolus; Site: left antecubital; jmk 15:35 Drug: Ondansetron 4 mg Route: IVP; Site: left antecubital; jmk 15:35 Drug: ketorolac 30 mg [ketorolac 30 mg/mL (1 mL) injection solution (1 mL)] Route: IVP; ulisesk Site: left antecubital; Signatures: Dispatcher [employer] Lianna Bo RN RN Kvng MoiseRN RN Nima Cartagena, Hammad Reg lg Cole Ibrahim, BARAK CANCINO cc10 The chart was reviewed and I authenticate all verbal orders and agree with the evaluation and treatment provided.Attachments: 15:18 [facility] Payment Agreement lg Chart Complete MTDD
== END 2016-12-25 17:31 | disposition home or self-care (01) ==
LOC: M ED 13:44
DX: R10.32 Left lower quadrant pain (principal); R11.2 Nausea with vomiting, unspecified; R19.7 Diarrhea, unspecified; J45.909 Unspecified asthma, uncomplicated; K21.9 Gastro-esophageal reflux disease without esophagitis; M54.9 Dorsalgia, unspecified; G89.29 Other chronic pain; Z87.891 Personal history of nicotine dependence; Z79.899 Other long term (current) drug therapy; Z91.013 Allergy to seafood
CPT/HCPCS: 36415; 74176; 80048; 80076; 81001; 83690; 85025; 86705; 86709; 86803; 87086; 87340; 96374; 96375; 99284; J1885; J2405

== ENCOUNTER → 2016-12-29 | Outpatient (CLI) | payer OTHER ==
[~2016-12-29] MED LIST: E-Z PAQUE 60% w/v SUSP 355ML BOTTLE As Ordered ONE; E-Z-GAS II EFFERVESCENT PACKET (SODIUM BICARB./CITRIC ACID/SIMETHICONE) As Ordered ONE; E-Z-HD 98% w/w 340GM SUSP BTL As Ordered ONE
--- NOTE | 2016-12-29 15:10 | REP ---
UPPER GI, AIR CONTRAST: The procedure was performed under the direct supervision of Dr. Sky. The images were reviewed with Dr. Sky. The artificial log machine operator film shows no organomegaly or pathological masses. The intestinal gas pattern is nonspecific. Liquid barium and gas-producing granules were given in the erect position as well as liquid barium in the prone oblique position in order to perform a double contrast upper GI examination. Additionally, liquid barium was given at the end of the examination in order to perform a small bowel follow through. The oral and pharyngeal stages of deglutition are unremarkable. Esophageal transport is prompt and efficient and there is no esophagitis, stricture or mucosal ring or hiatal hernia. Gastroesophageal reflux is not demonstrated on this examination. The stomach reynolds are normally outlined. The rugal folds are smooth and regular. There is no gastritis, neoplasm or ulcer disease. The duodenal reynolds are normally outlined. The mucosal folds are smooth and regular. There is no duodenitis, pancreatitis, peptic ulcer disease or neoplasm. The visualized portion of the proximal small bowel appears normal in course and caliber. The barium column was followed through the small bowel to the level of the terminal ileum. Small bowel transit time is approximately 15 minutes. During fluoroscopy gentle palpation shows all loops are freely movable and pliable. There are no fixed or angulated loops. The small bowel mucosal pattern is normal in course and caliber. There is no transition to suggest a partial small bowel obstruction. Spot filming of the terminal ileum shows it to be unremarkable. IMPRESSION: Essentially unremarkable double contrast upper GI and small bowel follow through examination. 3 minutes and 33 seconds of fluoroscopy time was utilized for this procedure. Reviewed by MARÍA ELENA Garcia 12/29/2016 03:33 PEdited and Signed by Rey Sky MD 12/29/2016 05:00 P
== END ==
LOC: M RAD 10:36
PROVIDERS: ATTEND Nurse Practitioner Family
DX: R10.13 Epigastric pain (principal)

== ENCOUNTER → 2017-09-17 | Outpatient (CLI) | payer BC, OTHER ==
--- NOTE | 2017-09-17 08:16 | PFTRPT ---
Site: [facility], [address], [place], [address] ID: [id number] Name: CLAUDIA BAYRONMeenu HERRMANN Doctor: LILIA Cuellar,VICE PRESIDENT OF PROCUREMENT, Sly Tech: Ny Valdez HYDROLOGIC MODELER Age: 42 Sex: Male Race: Height: 64.00 Inches Weight: 191.00 Lbs BSA: 1.92 Diagnosis: J45.998 Pre Test Comments: Pt did not take Advair this morning before testing test meet the ATS standards for acceptability and repeatability. Pre-Bronch Post-Bronch Pred Actual %Pred Actual %Chng SPIROMETRY FVC (L) 4.23 4.02 95 FEV1 (L) 3.36 3.19 94 FEV1/FVC (%) 79 79 100 FEF 25% (L/sec) 7.53 7.09 94 FEF 50% (L/sec) 5.42 3.41 62 FEF 75% (L/sec) 1.72 1.19 69 FEF 25-75% (L/sec) 3.21 2.80 87 FEF Max (L/sec) 8.75 9.03 103 FIVC (L) 3.58 FIF 50% (L/sec) 5.12 6.97 136 FIF Max (L/sec) 6.97 MVV (L/min) 140 151 108 LUNG VOLUMES SVC (L) 4.14 3.99 96 IC (L) 2.95 3.58 121 ERV (L) 1.19 0.41 34 TGV (L) 2.78 2.43 87 RV (Pleth) (L) 1.59 2.02 127 TLC (Pleth) (L) 5.73 6.01 104 RV/TLC (Pleth) (%) 28 34 119 DIFFUSION DLCOunc (ml/min/mmHg) 29.48 25.64 86 DL/VA (ml/min/mmHg/L) 5.14 4.50 87 VA (L) 5.73 5.69 99 AIRWAYS RESISTANCE Raw (cmH2O/L/s) 1.45 1.64 112 Gaw (L/s/cmH2O) 1.03 0.61 59 sRaw (cmH2O*s) 4.76 5.61 117 sGaw (1/cmH2O*s) 0.20 0.18 89
== END ==
LOC: M CARPUL 07:42
PROVIDERS: ATTEND Nurse Practitioner Family
DX: J45.998 Other asthma (principal)

== ENCOUNTER 2017-12-22 03:46 | Emergency (ER) | payer BC ==
[2017-12-22] MEDS: methylPREDNISolone INJ 125 MG/2 ML VIAL (J2930) IM (04:31)
== END 2017-12-22 05:11 | disposition home or self-care (01) ==
LOC: M ED 03:46
DX: J40 Bronchitis, not specified as acute or chronic (principal); J45.909 Unspecified asthma, uncomplicated; Z79.899 Other long term (current) drug therapy; Z79.51 Long term (current) use of inhaled steroids; Z87.891 Personal history of nicotine dependence
CPT/HCPCS: J2930

== ENCOUNTER 2019-04-02 12:33 | Emergency (ER) | payer BC ==
[~2019-04-02] VITALS: Ht 165.1 cm; Wt 88.6 kg
[~2019-04-02 12:33] MED LIST changes: +ADV100INH; +ALBU20IN; +AUGM875T28 PO; -E-Z PAQUE 60% w/v SUSP 355ML BOTTLE As Ordered ONE; -E-Z-GAS II EFFERVESCENT PACKET (SODIUM BICARB./CITRIC ACID/SIMETHICONE) As Ordered ONE; -E-Z-HD 98% w/w 340GM SUSP BTL As Ordered ONE; +PRED20TA PO; +PROAAER10; +TIZA6CAP
[2019-04-02] MEDS ORDERED: ESOM40CA35 (12:38)
[2019-04-02] MEDS ORDERED: ALL10TAB28 PO (12:38)
[2019-04-02] MEDS ORDERED: ADACEL/BOOSTRIX VACCINE (DIPHTH/PERTUSS/ACELL/TETANUS)0.5ML SYR (90715) IM ONE (15:30)
[2019-04-02] MEDS ORDERED: LIDOCAINE 2% MDV 20 ML VIAL SC ONE (15:30)
--- NOTE | 2019-04-02 15:41 | REP ---
LEFT FIRST DIGIT: Five views of left first digit performed and demonstrate no fracture, dislocation or intrinsic bone disease. IMPRESSION: No fracture or dislocation. Electronically Signed by Gómez Rodriguez MD 04/03/2019 09:15 A
[2019-04-02] MEDS ORDERED: CEPHALEXIN 500 MG CAP PO ONE (16:30)
[2019-04-02] MEDS ORDERED: ACETAMINOPH W/CODEINE #3 TAB UD PO ONE (16:30)
[2019-04-02] MEDS ORDERED: KEFL500C17 PO (16:31)
[2019-04-02] MEDS ORDERED: TYLETAB14 PO (16:31)
[2019-04-02] MEDS ORDERED: POLYSPORIN TOPICAL OINTMENT 15GM TOP ONE (16:45)
[2019-04-02 16:52] VITALS: BP 143/90
== END 2019-04-02 16:53 | disposition home or self-care (01) ==
LOC: M ED 12:33
DX: S61.012A Laceration without foreign body of left thumb without damage to nail, initial encounter (principal); X58.XXXA Exposure to other specified factors, initial encounter; Y92.018 Other place in single-family (private) house as the place of occurrence of the external cause; J45.909 Unspecified asthma, uncomplicated; Z79.899 Other long term (current) drug therapy